=== PATIENT | female | born 1995 | race Caucasian/White ===

== ENCOUNTER → 2025-02-18 15:46 | Outpatient (REF) | payer BC, SELFPAY | LOC: PNTC 15:46 | PROVIDERS: ATTENDING PHYSICIAN Obstetrics & Gynecology | DX: E06.3 Autoimmune thyroiditis (principal); O99.280 Endocrine, nutritional and metabolic diseases complicating pregnancy, unspecified trimester; Z87.59 Personal history of other complications of pregnancy, childbirth and the puerperium; Z82.49 Family history of ischemic heart disease and other diseases of the circulatory system | CPT/HCPCS: 76815 ==

== ENCOUNTER 2025-02-19 10:33 | Observation (INO) | payer BC, SELFPAY ==
[2025-02-19 10:44] VITALS: BP 125/71; BMI 29.2
[2025-02-19] MEDS: CELESTONE SOLUSPAN 2 MG IM (11:27)
[2025-02-19 11:32] LABS: Hematocrit 32.7 % (37.0-47.0); Hemoglobin 11.5 g/dL (12.0-16.0); Mean Corp Hgb Conc. 35.2 g/dL (33.0-37.0); Mean Corpuscular Volume 89.6 fL (81.0-99.0); Platelet Count 158 10^3/uL (130-400); Red Cell Dist. Width 12.1 % (11.5-14.5)
[2025-02-19 11:42] LABS: INR 0.96; PT 13.2 Sec (11.4-14.6)
[2025-02-19 11:43] LABS: APTT 24.5 Sec (23.4-35.0); Fibrinogen 411 MG/DL (199-459)
[2025-02-19] MEDS: LR 1000 IV (22:20)
[2025-02-19] MEDS: ZYRTEC 10 MG PO (22:28)
[2025-02-19] MEDS: PEPCID 20 MG PO (22:28)
[2025-02-19] MEDS: PRENATAL PLUS 1 TABLET PO (22:29)
[2025-02-20] MEDS: SYNTHROID 112 MCG PO (05:51)
[2025-02-20] MEDS: CELESTONE SOLUSPAN 2 MG IM (11:34)
== END 2025-02-20 14:38 | disposition home or self-care (01) ==
LOC: LDRP 10:33
PROVIDERS: ADMITTING PHYSICIAN Student in an Organized Health Care Education/Training Program
DX: O46.92 Antepartum hemorrhage, unspecified, second trimester (principal); Z3A.27 27 weeks gestation of pregnancy; G90.A Postural orthostatic tachycardia syndrome [POTS]; O99.282 Endocrine, nutritional and metabolic diseases complicating pregnancy, second trimester; E06.3 Autoimmune thyroiditis; Z79.890 Hormone replacement therapy; Z82.49 Family history of ischemic heart disease and other diseases of the circulatory system; Z83.49 Family history of other endocrine, nutritional and metabolic diseases; Z88.1 Allergy status to other antibiotic agents
CPT/HCPCS: 85027; 85384; 85460; 85610; 85730; 86850; 86900; 86901; G0378

== ENCOUNTER 2025-04-17 23:29 | Observation (INO) | payer BC, SELFPAY ==
[2025-04-17 23:38] VITALS: BMI 30.4
[2025-04-17 23:53] VITALS: BP 120/79
== END 2025-04-18 00:37 | disposition home or self-care (01) ==
LOC: LDRP 23:29
PROVIDERS: ADMITTING PHYSICIAN Obstetrics & Gynecology
DX: O26.893 Other specified pregnancy related conditions, third trimester (principal); N89.8 Other specified noninflammatory disorders of vagina; O99.283 Endocrine, nutritional and metabolic diseases complicating pregnancy, third trimester; E06.3 Autoimmune thyroiditis; Z3A.35 35 weeks gestation of pregnancy; G90.A Postural orthostatic tachycardia syndrome [POTS]; Z82.49 Family history of ischemic heart disease and other diseases of the circulatory system; Z82.62 Family history of osteoporosis; Z83.49 Family history of other endocrine, nutritional and metabolic diseases; Z88.1 Allergy status to other antibiotic agents
CPT/HCPCS: 59899; G0378

== ENCOUNTER 2025-05-21 19:31 | Inpatient (IN) | payer BC, SELFPAY ==
[2025-05-21 19:34] VITALS: BMI 31.8
[2025-05-21 19:40] VITALS: BP 119/72
[2025-05-21 20:03] LABS: Hematocrit 31.5 % (37.0-47.0); Hemoglobin 11.1 g/dL (12.0-16.0); Mean Corp Hgb Conc. 35.2 g/dL (33.0-37.0); Mean Corpuscular Volume 88.7 fL (81.0-99.0); Nucleated Red Blood Cells % 0 %; Platelet Count 178 10^3/uL (130-400); Red Cell Dist. Width 13.2 % (11.5-14.5)
[2025-05-21] MEDS: CYTOTEC 25 MICROGRAM VAG (20:20)
[2025-05-21] MEDS: ZYRTEC 10 MG PO (20:20)
[2025-05-21] MEDS: PEPCID 20 MG PO (20:20)
[2025-05-21] MEDS: PRENATAL PLUS PO (22:00)
[2025-05-21] MEDS: LR 1000 IV (23:20)
[2025-05-22] MEDS: LR 1000 IV ×2 (01:30→19:48)
[2025-05-22] MEDS: SYNTHROID 112 MCG PO (05:14)
[2025-05-22] MEDS: ZYRTEC 10 MG PO (19:38)
[2025-05-22] MEDS: PEPCID 20 MG PO (19:38)
[2025-05-22] MEDS: PRENATAL PLUS PO (22:34)
[2025-05-22] MEDS: PITOCIN 30 UNITS/NSS 500 ML IV (22:48)
[2025-05-23] MEDS: FENTANYL/BUPIVACAINE 100 EPIDURAL ×2 (03:11→11:39)
[2025-05-23] MEDS: SUBLIMAZE 100 MCG EPIDURAL (03:11)
[2025-05-23] MEDS: LR 1000 IV ×3 (03:27→12:23)
[2025-05-23] MEDS: SYNTHROID 112 MCG PO (06:03)
[2025-05-23] MEDS: ZOFRAN 4 MG IV (11:42)
[2025-05-23] MEDS: PITOCIN 30 UNITS/NSS 500 ML IV (18:10)
[2025-05-23] MEDS: PRENATAL PLUS 1 TABLET PO (21:13)
[2025-05-23] MEDS: ZYRTEC 10 MG PO (21:13)
[2025-05-23] MEDS: COLACE 100 MG PO (21:14)
[2025-05-23] MEDS: TYLENOL 650 MG PO (21:14)
[2025-05-24] MEDS: MOTRIN 600 MG PO ×4 (00:36→23:30)
[2025-05-24] MEDS: SYNTHROID 112 MCG PO (04:28)
[2025-05-24 04:42] LABS: Hematocrit 28.9 % (37.0-47.0); Hemoglobin 10.2 g/dL (12.0-16.0)
[2025-05-24] MEDS: PEPCID PO (07:41)
[2025-05-24] MEDS: COLACE 100 MG PO ×2 (08:52→20:03)
[2025-05-24] MEDS: PEPCID 20 MG PO (21:19)
[2025-05-24] MEDS: PRENATAL PLUS 1 TABLET PO (21:20)
[2025-05-24] MEDS: ZYRTEC PO (22:25)
[2025-05-25] MEDS: TYLENOL 650 MG PO (04:12)
[2025-05-25] MEDS: SYNTHROID 112 MCG PO (05:55)
[2025-05-25] MEDS: MOTRIN 600 MG PO (05:55)
[2025-05-25] MEDS: COLACE 100 MG PO (08:38)
[2025-05-27 14:04] LABS: Syphilis/T. pallidum Ab Reflex Negative (Negative)
== END 2025-05-25 12:45 | disposition home or self-care (01) | DRG 807 ==
LOC: LDRP 19:31
PROVIDERS: Obstetrics & Gynecology; ADMITTING PHYSICIAN Student in an Organized Health Care Education/Training Program
PROC: 0U7C7DJ Dilation of Cervix with Intraluminal Device, Temporary, Via Natural or Artificial Opening (ICD-10-PCS; 2025-05-22)
PROC: 3E033VJ Introduction of Other Hormone into Peripheral Vein, Percutaneous Approach (ICD-10-PCS; 2025-05-22)
PROC: 3E0P7VZ Introduction of Hormone into Female Reproductive, Via Natural or Artificial Opening (ICD-10-PCS; 2025-05-22)
PROC: 10907ZC Drainage of Amniotic Fluid, Therapeutic from Products of Conception, Via Natural or Artificial Opening (ICD-10-PCS; 2025-05-23)
PROC: 10E0XZZ Delivery of Products of Conception, External Approach (ICD-10-PCS; 2025-05-23)
PROC: 0KQM0ZZ Repair Perineum Muscle, Open Approach (ICD-10-PCS; 2025-05-23)
DX: O48.0 Post-term pregnancy (principal); Z37.0 Single live birth; O99.284 Endocrine, nutritional and metabolic diseases complicating childbirth; E06.3 Autoimmune thyroiditis; Z3A.39 39 weeks gestation of pregnancy; Z3A.40 40 weeks gestation of pregnancy; O70.1 Second degree perineal laceration during delivery; O76 Abnormality in fetal heart rate and rhythm complicating labor and delivery
CPT/HCPCS: 85014; 85018; 85025; 86780; 86850; 86900; 86901